=== PATIENT | female | born 1990 | race Caucasian/White ===

== ENCOUNTER 2020-01-11 00:23 | Emergency (ER) | payer OTHER ==
[~2020-01-11] VITALS: Ht 165.1 cm; Wt 106.6 kg
[2020-01-11 00:30] VITALS: Ht 165.1 cm; Wt 106.6 kg
[2020-01-11 03:31] VITALS: BP 134/59
== END 2020-01-11 03:31 | disposition home or self-care (01) ==
LOC: ED 00:23
DX: R51.9 Headache, unspecified (principal); H53.8 Other visual disturbances
CPT/HCPCS: J0780; J3475